=== PATIENT | female | born 1945 | race African-American/Black ===

== ENCOUNTER 2018-02-20 03:37 | Emergency (ER) | payer MEDICARE, BC | END 2018-02-20 06:03 | disposition home or self-care (01) | LOC: E/R 03:37 | DX: F32.9 Major depressive disorder, single episode, unspecified (principal); F17.210 Nicotine dependence, cigarettes, uncomplicated; Z76.0 Encounter for issue of repeat prescription | CPT/HCPCS: 99283 ==